=== PATIENT | male | born 1970 | race Caucasian/White ===

== ENCOUNTER 2016-10-14 16:08 | Emergency (ER) | payer BC ==
--- NOTE | 2016-10-14 17:20 | DIAGNOSTIC IMAGING REPORT ---
PROCEDURE: XR CHEST 1 VIEW INDICATION: CHEST PAIN TECHNIQUE: Portable AP view 04:47 p.m. COMPARISON: None. FINDINGS: Lungs are clear. Cardiomegaly. Thorax is normal. IMPRESSION: 1. Cardiomegaly, lungs clear.
--- NOTE | 2016-10-14 23:36 | ED ORDER SUMMARY ---
..... Patient: FILI CLANCY OrderSheet [facility] VisitID: [id number] [address] [place] [address] 46y, M Registration Date/Time: 10/14/2016 ORDER SHEET Weight: 129.2 kg (stated) Allergies: Iodine GENERAL ORDERS: Rn Med Surg (Continuous) (16:37 10/14/2016 HBivens A.R.N.P.) (17:04 LWhalen R.N.) Chest 1V Urgent (16:38 10/14/2016 HBivens A.R.N.P.) (Ack 16:39 KHoerner) (16:49 KHoerner) CBC w Diff Urgent (16:38 10/14/2016 HBivens A.R.N.P.) (Ack 16:39 KHoerner) (17:04 LWhalen R.N.) CMP Urgent (16:38 10/14/2016 HBivens A.R.N.P.) (Ack 16:39 KHoerner) (17:04 LWhalen R.N.) CPK Urgent (16:38 10/14/2016 HBivens A.R.N.P.) (Ack 16:39 KHoerner) (17:04 LWhalen R.N.) Troponin-I Urgent (16:38 10/14/2016 HBivens A.R.N.P.) (Ack 16:39 KHoerner) (17:04 LWhalen R.N.) Oxygen (2 L/min) (NC) (16:38 10/14/2016 HBivens A.R.N.P.) (17:04 LWhalen R.N.) EKG - ER Stat (16:39 10/14/2016 KHoerner verbal order read back to HBivens A.R.N.P.) (16:39 KHoerner) BNP Urgent (17:29 10/14/2016 HBivens A.R.N.P.) (Ack 17:30 KHoerner) (19:21 DDavis R.N.) CPK Urgent (17:33 10/14/2016 HBivens A.R.N.P.) (Ack 17:36 rowan) (19:21 DDavis R.N.) Troponin-I Urgent (17:33 10/14/2016 HBivens A.R.N.P.) (Ack 17:36 [facility]) (19:21 DDavis R.N.) MEDICATION ORDERS: Aspirin PO 325 mg (Do not crush or chew, NOW) (16:38 10/14/2016 HBivens A.R.N.P.) (17:04 LWhalen R.N.) - (Lisinopril 20mg po now) (22:30 10/14/2016 HBivens A.R.N.P.) (22:40 DDavis R.N.) -- (Coreg 5mg po stat) (22:30 10/14/2016 HBivens A.R.N.P.) (Cancelled: Other22:36 HBivens A.R.N.P.) - (Coreg 3.125mg po stat) (22:36 10/14/2016 HBivens A.R.N.P.) (22:41 DDavis R.N.) IV FLUIDS: IV Saline Lock (16:38 10/14/2016 HBivens A.R.N.P.) (17:05 LWhalen R.N.) ORDER SHEET NOTES: [Electronically signed by Raman Lockhart R.N. (00:24 10/15/2016)] [Electronically signed by Adrienne GuerreroR.N.P. (13:17 10/15/2016)] [Electronically locked/signed by Raman Lockhart R.N. (00:24 10/15/2016)]
--- NOTE | 2016-10-14 23:36 | ED NURSING NOTES ---
Clinical Report - Nurses [facility] [address] [place] [address] 10/14/2016 16:09 [id number] Triage time 16:Oct 14 2016. Acuity: LEVEL 3. Chief Complaint: CHEST PAIN. NIEVES COMA SCORE: Nieves Coma Scale: 15- eyes open spontaneously (4); best verbal response- oriented x 4 (5); best motor response- obeys commands (6). --16:21 Jason Ortiz R.N. 16:16 10/14/16. BP: 169/94. HR: 92. RR: 18. O2 saturation: 95%. Temp: 98.6 F. Pain level now 4/10. --16:21 Jason Ortiz R.N. Weight: 129.2 kg stated. Height/Length: 71 inches Per Patient. BMI: 39.7. --16:16 Jason Ortiz R.N. Medications Coreg Oral. --16:19 Jason Ortiz R.N. Lisinopril Oral. --16:19 Jason Ortiz R.N. Claritin Oral. --16:19 Jason Ortiz R.N. Flonase Nasal. --16:19 Jason Ortiz R.N. Allergies Iodine. --16:20 Jason Ortiz R.N. History Arrived by private vehicle. Historian: patient. This started last night. ( Had chest tightness and burning last night states feels like water in lungs burning. Pain went away then he was working and started feeling the chest pain.). He has had difficulty breathing. PAST MEDICAL HX: Hypertension. Heart disease. No history of diabetes mellitus or lung disease. Immunizations: up-to-date. SOCIAL HX: Never smoker. No alcohol use or drug use. SELF HARM ASSESSMENT: A self harm assessment was performed. The patient answered "no" to the question "Have you recently felt down, depressed, or hopeless?" and "Do you have thoughts of harming or killing yourself?". FALL RISK ASSESSMENT: Fall risk assessment completed. No fall risk identified. NUTRITIONAL RISK ASSESSMENT: The nutritional risk assessment revealed no deficiencies. FUNCTIONAL ASSESSMENT: Functional assessment: no impairments noted. LEARNING NEEDS ASSESSMENT: The learning needs assessment revealed no barriers. ABUSE ASSESSMENT: Abuse assessment: (yes) The patient was asked "Do you feel safe in your home?". SKIN INTEGRITY ASSESSMENT: Skin integrity risk assessment completed. No skin integrity risk identified. --16:21 Jason Ortiz R.N. PROBLEMS: Sleep apnea . High blood pressure . Right valve stent . Heart attack . --16:20 Jason Ortiz R.N. ADDITIONAL SURGERIES: Stent . --16:20 Jason Ortiz R.N. Interventions ID band on patient. --16:21 Jason Ortiz R.N. PHYSICAL ASSESSMENT Ambulatory to room. GENERAL / NEURO / PSYCH: Alert. Oriented X 4. Appears in no acute distress. HEENT: Mucous membranes are pink. RESPIRATORY: Respirations not labored. Chest nontender. Breath sounds within normal limits. ( Currently not having chest pain. States has had a mild cold.). CVS: Normal sinus rhythm noted. Heart sounds within normal limits. Pulses within normal limits. Capillary refill less than 2 seconds. GI / : Abdomen soft and nontender. ( Last BM normal last night). EXTREMITIES: No lower extremity edema. SKIN: Skin is warm and dry. Normal skin turgor. Skin is non-tender. --16:22 Jason Ortiz R.N. 19:15. GENERAL / NEURO / PSYCH: Alert. Oriented X 4. Appears in no acute distress. HEENT: Mucous membranes are pink. RESPIRATORY: No respiratory distress. Respirations not labored. CVS: Cardiac rhythm: normal sinus rhythm. Pulses within normal limits. Capillary refill less than 2 seconds. GI / : Abdomen soft and nontender. SKIN: Skin is warm and dry. --19:58 Raman Lockhart R.N. ( Patient sitting in bed, talking to a tree feller operator at the bedside. Awake and alert). --20:00 Raman Lockhart R.N. NURSING PROGRESS NOTES The initial plan of care for this patient includes an assessment with efforts to address patient positioning, appropriate ambient lighting and comfortable environmental temperature; impairment of the cardiovascular system. rug inspector helper, pulse oximeter and NIBP monitor placed on patient. Patient gowned. Head of bed elevated 75 degrees. Reassurance given. Call light placed in reach. Side rails up x 1. Bed placed in lowest position. Brakes of bed on. --16:22 Jason Ortiz R.N. 16:40 10/14/2016 Site #1 started via IV in the right wrist with an 20g angiocath, with aseptic technique and good blood return; two attempts. Blood drawn: rainbow set. Labeled in the presence of the patient and sent to the lab. Saline lock flushed with 10 mL saline (Done by Kelley EGAN). --17:05 Jason Ortiz R.N. 16:49 10/14/2016 Aspirin PO Tablets 325 mg given. Allergies verified and confirmed 5 rights. --17:04 Jason Ortiz R.N. 17:45 10/14/16. BP: 167/99. HR: 79. RR: 20. O2 saturation: 97%. 17:30 10/14/16. BP: 132/69. HR: 72. RR: 18. O2 saturation: 97%. 17:00 10/14/16. BP: 135/72. HR: 77. RR: 14. O2 saturation: 96%. 16:45 10/14/16. BP: 150/73. HR: 78. RR: 17. O2 saturation: 97%. 16:30 10/14/16. BP: 147/73. HR: 84. RR: 18. O2 saturation: 97%. --18:52 Jason Ortiz R.N. 18:30 10/14/16. BP: 152/85. HR: 81. RR: 20. O2 saturation: 97%. 18:15 10/14/16. BP: 170/101. HR: 80. RR: 22. O2 saturation: 97%. 18:00 10/14/16. BP: 145/73. HR: 80. RR: 20. O2 saturation: 97%. --19:18 Jason Ortiz R.N. ( Report given to Hever EGAN). --19:19 Jason Ortiz R.N. ( Patient is asking about his test results, I notified the provider--Adrienne Guerrreo NP.). --19:22 Raman Lockhart R.N. ( 1914: Report received from Jason Macdonald RN). --19:23 Raman Lockhart R.N. ( Patient ambulated to restroom. denies pain at this time.). --21:40 Raman Lockhart R.N. ( Patient is asking about his evening blood pressure medicine, if he should take it.). --22:22 Raman Lockhart R.N. <<STRICKEN ENTRY-- ( Kenny mohan NP notified of patient's request). --22:22 Raman Lockhart R.N. --END STRIKE>> Correction --22:22 Raman Lockhart R.N. ( Adrienne Mohan NP notified of the patient's request). --22:22 Raman Lockhart R.N. ( frame sample and pattern supervisor is notified and is attempting to obtain the ordered Coreg and lisinopril). --22:31 Raman Lockhart R.N. 22:39 10/14/16. BP: 137/86. HR: 76 (regular and normal rate). RR: 12 (regular and unlabored). O2 saturation: 96% on room air. Pain level now: 0/10. Additional comments: NSR on monitor. --22:40 Raman Lockhart R.N. 22:40 10/14/2016 Lisinopril PO Tablets 20 mg given. Allergies verified and confirmed 5 rights. --22:40 Raman Lockhart R.N. 22:40 10/14/2016 Carvedilol PO Tablets 3.125 mg given. Allergies verified and confirmed 5 rights. --22:41 Raman Lockhart R.N. 23:05 10/14/2016 IV Saline Lock Drip IV Continued: upon transfer at the rate of 000 mL/hr. IV patency established. IV site checked: no pain, redness, or swelling. IV flushed thoroughly. --00:24 Raman Lockhart R.N. DISPOSITION / DISCHARGE 18:30 10/14/16. BP: 152/85. HR: 81. RR: 20. O2 saturation: 97%. 18:15 10/14/16. BP: 170/101. HR: 80. RR: 22. O2 saturation: 97%. 18:00 10/14/16. BP: 145/73. HR: 80. RR: 20. O2 saturation: 97%. 17:45 10/14/16. BP: 167/99. HR: 79. RR: 20. O2 saturation: 97%. --19:19 Jason Ortiz R.N. 23:00 10/14/16. BP: 142/89. HR: 75. RR: 26. O2 saturation: 75%. Temp: 98.6 F (oral). Tomas-Edmond pain scale: 07/11. --23:01 Sofiya Krishnamurthy R.N. 23:01 10/14/2016 Site #[address] upon transfer. --23:01 Sofiya Krishnamurthy R.N. Patient's personal items include: shirt, wallet and cell phone; items were placed in belongings bag and transported with the patient. Collection of belongings was witnessed by 1 nurse. --23:02 Sofiya Krishnamurthy R.N. Condition at departure: stable. No learning barriers present. Discharge instructions provided and reviewed with the patient. Reviewed referrals. The patient left the Emergency Department on a stretcher. Transferred ([facility]). Transported via ambulance. Report was given to an EMT/P in person. Report included patient's care, treatment, medications, reviewed medication reconcilliation, and condition (including any recent changes or anticipated changes). All questions were answered. Report was acknowledged. --23:18 Raman Lockhart R.N. ( Transfer information reviewed with patient). --23:18 Raman Lockhart R.N. ( EMS present for transport). --23:19 Raman Lockhart R.N. Departure time: 23:35. --23:35 Karlos Quiroz R.N. Locked/Released at 10/15/2016 0:24 by Raman Lockhart R.N.
--- NOTE | 2016-10-14 23:36 | ED CLINICAL REPORT ---
Clinical Report - Physicians/Mid Levels [facility] [address] [place] [address] 10/14/2016 16:09 Patient: FIIL CLANCY Time Seen: 1625; initial patient contact, initial documentation, patient care assumed. Arrived- By private vehicle. Historian- patient. HISTORY OF PRESENT ILLNESS Chief Complaint: CHEST DISCOMFORT. At its maximum, severity described as moderate. When seen in the E.D., it was gone. Modifying factors. Not worsened by anything. Not relieved by anything. This started today and is now gone. It was abrupt in onset (lasting 2 hours). Onset during light activity; at work, and worked thru the pain. It is described as burning and it is described as located in the central chest area. No radiation. No nausea, vomiting or diaphoresis. He has had mild difficulty breathing. No additional chest pain. Similar symptoms previously: Once, as bad. ( states he had this happen before, about a month after his heart attack, they admitted him, checked the stent, everything was fine and he was dx with heartburn). Recent medical care: Not recently seen/assessed. REVIEW OF SYSTEMS No cough. All systems otherwise negative, except as recorded above. PAST HISTORY See nurses notes. PROBLEMS: Sleep apnea . High blood pressure . Right valve stent . Heart attack . --16:20 Jason Ortiz RCayetanoN. ADDITIONAL SURGERIES: Stent . --16:20 Jason Ortiz RCayetanoN. SOCIAL HISTORY Never smoker. No alcohol use or drug use. No recent travel. Visiting locally. FAMILY HISTORY Negative. ADDITIONAL NOTES The nursing notes have been reviewed with agreement regarding the chief complaint, HPI, ROS, PMH and patient medications and allergies. PHYSICAL EXAM Vital Signs: 10/14/2016 16:16 BP: 169/94. HR: 92. RR: 18. O2 saturation: 95%. Temp: 98.6 F. Have been reviewed as abnormal and appear to be correct. Hypertensive. Heart rate normal. Respiratory rate normal. Temperature normal. Oxygen saturation normal. Appearance: Alert. Oriented X3. No acute distress. Eyes: Pupils equal, round and reactive to light. Eyes normal inspection. Neck: Normal inspection. Neck supple. CVS: Normal heart rate and rhythm. Heart sounds normal. Pulses normal. Respiratory: No respiratory distress. Breath sounds normal. Chest nontender. Abdomen: Moderately obese. Back: Normal external inspection. Skin: Skin warm and dry. Normal skin color. No rash. Normal skin turgor. Extremities: Extremities exhibit normal ROM. No lower extremity edema. Neuro: Oriented X 3. No motor deficit. No sensory deficit. LABS, X-RAYS, AND EKG EKG: EKG time: (1621). No acute process. No acute ischemia. Normal EKG. Rate: 86. Abnormal axis. Left axis deviation. Normal EKG. The study has been interpreted contemporaneously by me (and Dr Lowe). The EKG appears to be a good tracing. Interpretation time: 1623. Chest X-ray: Normal Chest X-Ray. (IMPRESSION: 1. Cardiomegaly, lungs clear. Electronically Final signed by:Jhon Meyer MD 10/14/2016 5:20:31 PM). The X-rays were interpreted by the radiologist and contemporaneously by me. Interpretation time: 17:28. Laboratory Tests: CBC w Diff: (SHAY: 10/14/2016 16:30) ( MsgRcvd 10/14/2016 17:28) Final results Test Result Flag Units (Reference) WHITE BLOOD COUNT 9.3 K/uL (4.5-11.5) RED BLOOD COUNT 5.15 M/uL (4.50-5.90) HEMOGLOBIN 15.2 gm/dL (13.5-17.5) HEMATOCRIT 45.0 % (41.0-53.0) MEAN CELL VOLUME 87 fL (80-100) MEAN CORPUSCULAR HGB 30 pg (26-34) MEAN CORPUSCULAR HGB CONC 34 g/dL (31-37) RED CELL DISTRIBUTION WIDTH 13.1 % (11.6-14.8) PLATELET COUNT 224 K/uL (150-400) NEUTROPHIL % 68.1 % (50-75) LYMPH % 22.5 L % (25-40) MONO % 7.3 % (3-14) EOSINOPHIL % 1.7 % (0-4) BASOPHIL % 0.4 % (0-2) CPK: (SHAY: 10/14/2016 18:55) ( [facility] 10/14/2016 19:42) Final results Test Result Flag Units (Reference) CPK 514 H U/L (24-260) TROPONIN I 0.97 ng/mL (0.00-1.5) TROPONIN REFERENCE RANGE:<0.1 NEGATIVE0.1-1.5 INDETERMINANT>1.5 POSITIVE CK-MB 13.8 H ng/mL (0.5-3.2) %CKMB 2.7 % (0.0-4.0) BNP: (SHAY: 10/14/2016 16:30) ( [facility] 10/14/2016 18:04) Final results Test Result Flag Units (Reference) B-TYPE NATRIURETIC PEPTIDE 74.6 pg/ml (5-100) CMP: (SHAY: 10/14/2016 16:30) ( [facility] 10/14/2016 17:40) Final results Test Result Flag Units (Reference) GLUCOSE 110 mg/dL (70-110) BUN 16 mg/dL (7-18) CREATININE 1.1 mg/dL (0.6-1.3) Estimated GFR >60 mL/min Estimated GFR- >60 mL/min Note: Persistent reduction over 3 months in eGFR<60 mL/min/1.73 m2 defines CKD. Patients with eGFR values>=60 mL/min/1.73 m2 may also have CKD if evidence ofpersistent proteinuria. Additional information may be foundat www.kidney.org. SODIUM 142 mmol/L (136-145) POTASSIUM 4.0 mmol/L (3.5-5.1) CHLORIDE 105 mmol/L (98-107) CARBON DIOXIDE 27 mmol/L (21-32) CALCIUM 8.9 mg/dL (8.5-10.1) TOTAL PROTEIN 7.8 g/dL (6.4-8.2) ALBUMIN 4.2 g/dL (3.3-5.0) BILIRUBIN, TOTAL 0.5 mg/dL (0.0-1.0) ALKALINE PHOSPHATASE 68 U/L (46-116) AST (SGOT) 36 U/L (15-37) ALT (SGPT) 51 U/L (12-78) CPK 497 H U/L (24-260) CK-MB 6.7 H ng/mL (0.5-3.2) %CKMB 1.3 % (0.0-4.0) TROPONIN I 0.28 ng/mL (0.00-1.5) TROPONIN REFERENCE RANGE:<0.1 NEGATIVE0.1-1.5 INDETERMINANT>1.5 POSITIVE . PROGRESS AND PROCEDURES Course of Care: having staff attempt to get old ekg from pt's home care provider in [facility] 18:36 10/14/16. no ekg or records received 1950. spoke to pt re concerns of rising cardiac enzymes and need for admit/transfer, pt wants to be transferred to [facility] where is home care provider is and where his stent was placed, and states he would even drive himself there 2019. spoke to nurse Ada at [facility] transfer center, pt's case reviewed and need for transfer, she did verify that they had a couple of cardiac beds left, and he was a pt of theirs, said she would try to find accepting md and bed and call me back 20:40 10/14/16. spoke to other nurse at transfer center Rylee, who is also helping get pt a bed and accepting md, found an old ekg from 2011 and agreed to fax it, and call us back with more info 21:11 10/14/16. old ekg received from [facility], no change from ours today 2216. Spoke to nurse yRlee again at transfer center, and Foreign Banknote Teller electrical controls designer at [facility], agreed to be consult on pt's case and do stress test or whatever else was needed in morning, Rylee to get hospitalist to admit and will call me back 22:29 10/14/16. 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 ems here for transport called [facility] back, spoke to new storage facility housekeeper on duty, Socorro, who said hospitalist had been paged twice already, no return phone call yet, she will call him again and call us back 23:08 10/14/16. Socorro from [place] called back, stating the hospitalist was on another call and would call us back as soon as he was finished transport team aware 23:12 10/14/16. Socorro called back again, stating Dr Freitas, who would be accepting md, asked us to fax ekg and labs to him fax [phone] asked linda Maddox to do this 23:32 10/14/16. Report given to Dr. Freitas who is accepting md Quintanilla at transport center aware Transport team notified and given green light to transfer pt Clarified with linda everything was ready. 10/14/2016 21:00 BP: 142/81. HR: 74. RR: 17. O2 saturation: 97%. Vital Signs: have been reviewed as normal and appear to be correct. Patient counseled in person regarding the patient's stable condition, test results, diagnosis and need for additional testing, admission and transfer. Differential Diagnosis: I considered muscle strain, costochondritis, myositis, pleurisy, cardiovascular etiology, myocardial infarction, intermediate coronary syndrome, unstable angina, angina, aortic dissection, mitral valve prolapse, pericarditis, pulmonary embolism, pneumonia, lung cancer, gastroesophageal reflux disease, esophagitis and esophageal spasm as a possible cause of chest pain in this patient. This is a partial list of diagnoses considered. Above considerations are based on history, physical exam, reassessment, laboratory data, X-Ray data, EKG and other information. Differential diagnosis was discussed with patient. Disposition: Benefits, risks and alternatives to transfer explained to patient. Transferred. Summary of care provided to transport team, EMS and transfer facility via paper and digital media. [facility]. Condition: good and stable. CLINICAL IMPRESSION Precordial chest pain. (Electronically signed by Adrienne Guerrero, NeetaNCayetanoPCayetano 10/15/2016 13:17) Addenda for FILI CLANCY VisitID: [id number] Date: 10/14/2016 10/15/2016 2:02 The transfer center from [facility] called me, and connected me to the receiving nurse for the patient. JIGNESH Iraheta from that facility received report from me. I then answered his questions, and report was verbally acknowledged. (Electronically signed by Ramna Lockhart R.N. - 10/15/2016 2:02)
--- NOTE | 2016-10-14 23:36 | ED ORDER SUMMARY ---
..... Patient: FILI CLANCY OrderSheet [facility] VisitID: [id number] [address] [place] [address] 46y, M Registration Date/Time: 10/14/2016 ORDER SHEET Weight: 129.2 kg (stated) Allergies: Iodine GENERAL ORDERS: Air Quality Manager (Continuous) (16:37 10/14/2016 HBivens A.R.N.P.) (17:04 LWhalen R.N.) Chest 1V Urgent (16:38 10/14/2016 HBivens A.R.N.P.) (Ack 16:39 KHoerner) (16:49 KHoerner) CBC w Diff Urgent (16:38 10/14/2016 HBivens A.R.N.P.) (Ack 16:39 KHoerner) (17:04 LWhalen R.N.) CMP Urgent (16:38 10/14/2016 HBivens A.R.N.P.) (Ack 16:39 KHoerner) (17:04 LWhalen R.N.) CPK Urgent (16:38 10/14/2016 HBivens A.R.N.P.) (Ack 16:39 KHoerner) (17:04 LWhalen R.N.) Troponin-I Urgent (16:38 10/14/2016 HBivens A.R.N.P.) (Ack 16:39 KHoerner) (17:04 LWhalen R.N.) Oxygen (2 L/min) (NC) (16:38 10/14/2016 HBivens A.R.N.P.) (17:04 LWhalen R.N.) EKG - ER Stat (16:39 10/14/2016 KHoerner verbal order read back to HBivens A.R.N.P.) (16:39 KHoerner) BNP Urgent (17:29 10/14/2016 HBivens A.R.N.P.) (Ack 17:30 KHoerner) (19:21 DDavis R.N.) CPK Urgent (17:33 10/14/2016 HBivens A.R.N.P.) (Ack 17:36 rowan) (19:21 DDavis R.N.) Troponin-I Urgent (17:33 10/14/2016 HBivens A.R.N.P.) (Ack 17:36 [facility]) (19:21 DDavis R.N.) MEDICATION ORDERS: Aspirin PO 325 mg (Do not crush or chew, NOW) (16:38 10/14/2016 HBivens A.R.N.P.) (17:04 LWhalen R.N.) - (Lisinopril 20mg po now) (22:30 10/14/2016 HBivens A.R.N.P.) (22:40 DDavis R.N.) -- (Coreg 5mg po stat) (22:30 10/14/2016 HBivens A.R.N.P.) (Cancelled: Other22:36 HBivens A.R.N.P.) - (Coreg 3.125mg po stat) (22:36 10/14/2016 HBivens A.R.N.P.) (22:41 DDavis R.N.) IV FLUIDS: IV Saline Lock (16:38 10/14/2016 HBivens A.R.N.P.) (17:05 LWhalen R.N.) ORDER SHEET NOTES: [Electronically signed by Raman Lockhart R.N. (00:24 10/15/2016)] [Electronically signed by Adrienne GurereroR.N.P. (13:17 10/15/2016)] [Electronically locked/signed by Raman Lockhart R.N. (00:24 10/15/2016)]
--- NOTE | 2016-10-14 23:36 | ED CLINICAL REPORT ---
Clinical Report - Physicians/Mid Levels [facility] [address] [place] [address] 10/14/2016 16:09 Patient: FILI CLANCY Time Seen: 1625; initial patient contact, initial documentation, patient care assumed. Arrived- By private vehicle. Historian- patient. HISTORY OF PRESENT ILLNESS Chief Complaint: CHEST DISCOMFORT. At its maximum, severity described as moderate. When seen in the E.D., it was gone. Modifying factors. Not worsened by anything. Not relieved by anything. This started today and is now gone. It was abrupt in onset (lasting 2 hours). Onset during light activity; at work, and worked thru the pain. It is described as burning and it is described as located in the central chest area. No radiation. No nausea, vomiting or diaphoresis. He has had mild difficulty breathing. No additional chest pain. Similar symptoms previously: Once, as bad. ( states he had this happen before, about a month after his heart attack, they admitted him, checked the stent, everything was fine and he was dx with heartburn). Recent medical care: Not recently seen/assessed. REVIEW OF SYSTEMS No cough. All systems otherwise negative, except as recorded above. PAST HISTORY See nurses notes. PROBLEMS: Sleep apnea . High blood pressure . Right valve stent . Heart attack . --16:20 Jason Ortiz RCayetanoN. ADDITIONAL SURGERIES: Stent . --16:20 Jason Ortiz RCayetanoN. SOCIAL HISTORY Never smoker. No alcohol use or drug use. No recent travel. Visiting locally. FAMILY HISTORY Negative. ADDITIONAL NOTES The nursing notes have been reviewed with agreement regarding the chief complaint, HPI, ROS, PMH and patient medications and allergies. PHYSICAL EXAM Vital Signs: 10/14/2016 16:16 BP: 169/94. HR: 92. RR: 18. O2 saturation: 95%. Temp: 98.6 F. Have been reviewed as abnormal and appear to be correct. Hypertensive. Heart rate normal. Respiratory rate normal. Temperature normal. Oxygen saturation normal. Appearance: Alert. Oriented X3. No acute distress. Eyes: Pupils equal, round and reactive to light. Eyes normal inspection. Neck: Normal inspection. Neck supple. CVS: Normal heart rate and rhythm. Heart sounds normal. Pulses normal. Respiratory: No respiratory distress. Breath sounds normal. Chest nontender. Abdomen: Moderately obese. Back: Normal external inspection. Skin: Skin warm and dry. Normal skin color. No rash. Normal skin turgor. Extremities: Extremities exhibit normal ROM. No lower extremity edema. Neuro: Oriented X 3. No motor deficit. No sensory deficit. LABS, X-RAYS, AND EKG EKG: EKG time: (1621). No acute process. No acute ischemia. Normal EKG. Rate: 86. Abnormal axis. Left axis deviation. Normal EKG. The study has been interpreted contemporaneously by me (and Dr Lowe). The EKG appears to be a good tracing. Interpretation time: 1623. Chest X-ray: Normal Chest X-Ray. (IMPRESSION: 1. Cardiomegaly, lungs clear. Electronically Final signed by:Jhon Meyer MD 10/14/2016 5:20:31 PM). The X-rays were interpreted by the radiologist and contemporaneously by me. Interpretation time: 17:28. Laboratory Tests: CBC w Diff: (SHAY: 10/14/2016 16:30) ( MsgRcvd 10/14/2016 17:28) Final results Test Result Flag Units (Reference) WHITE BLOOD COUNT 9.3 K/uL (4.5-11.5) RED BLOOD COUNT 5.15 M/uL (4.50-5.90) HEMOGLOBIN 15.2 gm/dL (13.5-17.5) HEMATOCRIT 45.0 % (41.0-53.0) MEAN CELL VOLUME 87 fL (80-100) MEAN CORPUSCULAR HGB 30 pg (26-34) MEAN CORPUSCULAR HGB CONC 34 g/dL (31-37) RED CELL DISTRIBUTION WIDTH 13.1 % (11.6-14.8) PLATELET COUNT 224 K/uL (150-400) NEUTROPHIL % 68.1 % (50-75) LYMPH % 22.5 L % (25-40) MONO % 7.3 % (3-14) EOSINOPHIL % 1.7 % (0-4) BASOPHIL % 0.4 % (0-2) CPK: (SHAY: 10/14/2016 18:55) ( [facility] 10/14/2016 19:42) Final results Test Result Flag Units (Reference) CPK 514 H U/L (24-260) TROPONIN I 0.97 ng/mL (0.00-1.5) TROPONIN REFERENCE RANGE:<0.1 NEGATIVE0.1-1.5 INDETERMINANT>1.5 POSITIVE CK-MB 13.8 H ng/mL (0.5-3.2) %CKMB 2.7 % (0.0-4.0) BNP: (SHAY: 10/14/2016 16:30) ( [facility] 10/14/2016 18:04) Final results Test Result Flag Units (Reference) B-TYPE NATRIURETIC PEPTIDE 74.6 pg/ml (5-100) CMP: (SHAY: 10/14/2016 16:30) ( [facility] 10/14/2016 17:40) Final results Test Result Flag Units (Reference) GLUCOSE 110 mg/dL (70-110) BUN 16 mg/dL (7-18) CREATININE 1.1 mg/dL (0.6-1.3) Estimated GFR >60 mL/min Estimated GFR- >60 mL/min Note: Persistent reduction over 3 months in eGFR<60 mL/min/1.73 m2 defines CKD. Patients with eGFR values>=60 mL/min/1.73 m2 may also have CKD if evidence ofpersistent proteinuria. Additional information may be foundat www.kidney.org. SODIUM 142 mmol/L (136-145) POTASSIUM 4.0 mmol/L (3.5-5.1) CHLORIDE 105 mmol/L (98-107) CARBON DIOXIDE 27 mmol/L (21-32) CALCIUM 8.9 mg/dL (8.5-10.1) TOTAL PROTEIN 7.8 g/dL (6.4-8.2) ALBUMIN 4.2 g/dL (3.3-5.0) BILIRUBIN, TOTAL 0.5 mg/dL (0.0-1.0) ALKALINE PHOSPHATASE 68 U/L (46-116) AST (SGOT) 36 U/L (15-37) ALT (SGPT) 51 U/L (12-78) CPK 497 H U/L (24-260) CK-MB 6.7 H ng/mL (0.5-3.2) %CKMB 1.3 % (0.0-4.0) TROPONIN I 0.28 ng/mL (0.00-1.5) TROPONIN REFERENCE RANGE:<0.1 NEGATIVE0.1-1.5 INDETERMINANT>1.5 POSITIVE . PROGRESS AND PROCEDURES Course of Care: having staff attempt to get old ekg from pt's masseur/masseuse in [facility] 18:36 10/14/16. no ekg or records received 1950. spoke to pt re concerns of rising cardiac enzymes and need for admit/transfer, pt wants to be transferred to [facility] where is masseur/masseuse is and where his stent was placed, and states he would even drive himself there 2019. spoke to nurse Ada at [facility] transfer center, pt's case reviewed and need for transfer, she did verify that they had a couple of cardiac beds left, and he was a pt of theirs, said she would try to find accepting md and bed and call me back 20:40 10/14/16. spoke to other nurse at transfer center Rylee, who is also helping get pt a bed and accepting md, found an old ekg from 2011 and agreed to fax it, and call us back with more info 21:11 10/14/16. old ekg received from [facility], no change from ours today 2216. Spoke to nurse Rylee again at transfer center, and Bait Painter human resources operations manager at [facility], agreed to be consult on pt's case and do stress test or whatever else was needed in morning, Rylee to get hospitalist to admit and will call me back 22:29 10/14/16. 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 ems here for transport called [facility] back, spoke to new research greenhouse supervisor on duty, Socorro, who said hospitalist had been paged twice already, no return phone call yet, she will call him again and call us back 23:08 10/14/16. Socorro from [place] called back, stating the hospitalist was on another call and would call us back as soon as he was finished transport team aware 23:12 10/14/16. Socorro called back again, stating Dr Freitas, who would be accepting md, asked us to fax ekg and labs to him fax [phone] asked linda Maddox to do this 23:32 10/14/16. Report given to Dr. Freitas who is accepting md Quintanilla at transport center aware Transport team notified and given green light to transfer pt Clarified with linda everything was ready. 10/14/2016 21:00 BP: 142/81. HR: 74. RR: 17. O2 saturation: 97%. Vital Signs: have been reviewed as normal and appear to be correct. Patient counseled in person regarding the patient's stable condition, test results, diagnosis and need for additional testing, admission and transfer. Differential Diagnosis: I considered muscle strain, costochondritis, myositis, pleurisy, cardiovascular etiology, myocardial infarction, intermediate coronary syndrome, unstable angina, angina, aortic dissection, mitral valve prolapse, pericarditis, pulmonary embolism, pneumonia, lung cancer, gastroesophageal reflux disease, esophagitis and esophageal spasm as a possible cause of chest pain in this patient. This is a partial list of diagnoses considered. Above considerations are based on history, physical exam, reassessment, laboratory data, X-Ray data, EKG and other information. Differential diagnosis was discussed with patient. Disposition: Benefits, risks and alternatives to transfer explained to patient. Transferred. Summary of care provided to transport team, EMS and transfer facility via paper and digital media. [facility]. Condition: good and stable. CLINICAL IMPRESSION Precordial chest pain. (Electronically signed by Adrienne Guerrero, NeetaNCayetanoPCayetano 10/15/2016 13:17) Addenda for FILI CLANCY VisitID: [id number] Date: 10/14/2016 10/15/2016 2:02 The transfer center from [facility] called me, and connected me to the receiving nurse for the patient. JIGNESH Iraheta from that facility received report from me. I then answered his questions, and report was verbally acknowledged. (Electronically signed by Raman Lockhart R.N. - 10/15/2016 2:02)
--- NOTE | 2016-10-15 13:17 | ED DISCHARGE INSTRUCTIONS ---
Patient: FILI CLANCY General Instructions [facility] VisitID: [id number] [address] [place] [address] 46y, M Registration Date/Time: 10/14/2016 Precordial chest pain. (Electronically signed by Adrienne Guerrero A.R.N.P. 10/15/2016 13:17)
--- NOTE | 2016-10-15 13:17 | ED DISCHARGE INSTRUCTIONS ---
Patient: FILI CLANCY General Instructions [facility] VisitID: [id number] [address] [place] [address] 46y, M Registration Date/Time: 10/14/2016 Precordial chest pain. (Electronically signed by Adrienne Guerrero A.R.N.P. 10/15/2016 13:17)
--- NOTE | 2016-10-15 13:18 | ED MED RECONCILIATION SUMMARY ---
Patient: FILI CLANCY Medication Reconciliation Report [facility] VisitID: [id number] [address] [place] [address] 46y, M Registration Date/Time: 10/14/2016 Weight: 129.2 kg Height/Length: 71 in. BMI: 39.7 ALLERGIES: Iodine The patient's Home Medications are listed below: THE FOLLOWING MEDICATIONS NEED TO BE RECONCILED: Claritin Oral Coreg Oral Flonase Nasal Lisinopril Oral The source(s) of the original Home Medication information: Not obtained. The following Medications were given to the patient in the Emergency Department: Aspirin [PO] PO 325 mg, administered: 10/14/2016 4:49:00 PM Lisinopril [PO] PO 20 mg, administered: 10/14/2016 10:40:00 PM Carvedilol [PO] PO 3.125 mg, administered: 10/14/2016 10:40:00 PM The following Medications were prescribed to the patient: None.
--- NOTE | 2016-10-15 13:18 | ED MAR SUMMARY ---
..... Medication Administration Record [facility] [address] [place] [address] Patient: FILI CLANCY Visit ID: [id number] 46y, M Weight: 129.2 kg Height/Length: 71 in BMI: 39.7 ALLERGIES: Iodine Given 16:49 10/14/2016 Jason Ortiz R.N. Medication Administered: ASPIRIN [PO], Dose: 325 mg Tablets PO. Medication Ordered: Aspirin PO 325 mg (Do not crush or chew, NOW). Given 22:40 10/14/2016 Raman Lockhart R.N. Medication Administered: LISINOPRIL [PO], Dose: 20 mg Tablets PO. Medication Ordered: - (Lisinopril 20mg po now). Given 22:40 10/14/2016 Raman Lockhart R.N. Medication Administered: CARVEDILOL [PO], Dose: 3.125 mg Tablets PO. Medication Ordered: - (Coreg 3.125mg po stat).
--- NOTE | 2016-10-15 13:18 | ED MAR SUMMARY ---
..... Medication Administration Record [facility] [address] [place] [address] Patient: FILI CLANCY Visit ID: [id number] 46y, M Weight: 129.2 kg Height/Length: 71 in BMI: 39.7 ALLERGIES: Iodine Given 16:49 10/14/2016 Jason Ortiz R.N. Medication Administered: ASPIRIN [PO], Dose: 325 mg Tablets PO. Medication Ordered: Aspirin PO 325 mg (Do not crush or chew, NOW). Given 22:40 10/14/2016 Raman Lockhart R.N. Medication Administered: LISINOPRIL [PO], Dose: 20 mg Tablets PO. Medication Ordered: - (Lisinopril 20mg po now). Given 22:40 10/14/2016 Raman Lockhart R.N. Medication Administered: CARVEDILOL [PO], Dose: 3.125 mg Tablets PO. Medication Ordered: - (Coreg 3.125mg po stat).
--- NOTE | 2016-10-15 13:18 | ED MED RECONCILIATION SUMMARY ---
Patient: FILI CLANCY Medication Reconciliation Report [facility] VisitID: [id number] [address] [place] [address] 46y, M Registration Date/Time: 10/14/2016 Weight: 129.2 kg Height/Length: 71 in. BMI: 39.7 ALLERGIES: Iodine The patient's Home Medications are listed below: THE FOLLOWING MEDICATIONS NEED TO BE RECONCILED: Claritin Oral Coreg Oral Flonase Nasal Lisinopril Oral The source(s) of the original Home Medication information: Not obtained. The following Medications were given to the patient in the Emergency Department: Aspirin [PO] PO 325 mg, administered: 10/14/2016 4:49:00 PM Lisinopril [PO] PO 20 mg, administered: 10/14/2016 10:40:00 PM Carvedilol [PO] PO 3.125 mg, administered: 10/14/2016 10:40:00 PM The following Medications were prescribed to the patient: None.
== END 2016-10-14 23:36 | disposition short-term general hospital (02) ==
LOC: ED SRH 16:08
DX: R07.2 Precordial pain (principal); I10 Essential (primary) hypertension; I51.9 Heart disease, unspecified; Z79.899 Other long term (current) drug therapy; Z88.8 Allergy status to other drugs, medicaments and biological substances
CPT/HCPCS: 90074; 90100; 90616; 90617; 91320; 92610; 95059